=== PATIENT | female | born 1995 | race Caucasian/White ===

== ENCOUNTER 2017-03-08 14:08 | Emergency (ER) | payer OTHER ==
--- NOTE | ~2017-03-08 | CR63 ---
[facility] A Service of [facility] RADIOLOGY TEXT RESULTS PATIENT: JERRY HIGGINS LOCATION: SED : [birth year] UNIT #: [id number] AGE: [address]: GULSHAN BRAR SEX: F ORDER DR: [id number] [address] [address] [id number] MR#: [id number] Acc #: [id number] NAME: JERRY HIGGINS : 1995 SEX: F STUDY DATE/TIME: 03/08/2017 14:51 UNIT: SED ROOM: STUDY DESCRIPTION: CR Chest 2 View Attending Physician: Gulshan Brar Ordering Physician: Gulshan Brar Primary Care Physician: Primary Care Physician No MEDICAL IMAGING REPORT This report is preliminary unless electronic signature is present. EXAM Chest x-ray HISTORY Cough for the past 3 days accompanied by a sore throat TECHNIQUE 2 views the chest were obtained. FINDINGS PA and lateral examination of the chest upright shows a good expansion of the parenchyma with a normal distribution of the pulmonary vascularity. There is no indication of congestion, effusion, infiltrate, tumor, or nodular density. The pleural reflections and diaphragmatic contours are normal. The cardiac silhouette and mediastinal anatomy is within normal limits. IMPRESSION Normal chest. Dictated by... Ron Dillard M.D. THIS IS AN ELECTRONICALLY VERIFIED REPORT Ron Dillard M.D. at 03/09/2017 9:36 AM RLF/sarahr TD: 03/08/2017 20:00 JOB #: [id number] MEDICAL IMAGING REPORT [facility] A Service of [facility] RADIOLOGY TEXT RESULTS PATIENT: JERRY HIGGINS LOCATION: SED : [birth year] UNIT #: [id number] AGE: [address]: GULSHAN BRAR SEX: F ORDER DR: Page 1 of 1
[~2017-03-08 14:08] MED LIST: NAPROSYN-EC500 M1 DOB; NO MEDICATIONS; [UNRECOGNIZED DRUG - CODE] PO
== END 2017-03-08 15:59 | disposition home or self-care (01) ==
LOC: SED 14:08
DX: J02.9 Acute pharyngitis, unspecified (principal); J32.9 Chronic sinusitis, unspecified; J45.909 Unspecified asthma, uncomplicated; F17.210 Nicotine dependence, cigarettes, uncomplicated
CPT/HCPCS: 71020; 87651; 94640; 99284